=== PATIENT | female | born 1975 | race American Indian/Alaskan Native ===

== ENCOUNTER 2017-09-19 22:20 | Emergency (ER) | payer MEDICAID ==
[2017-09-19] MEDS ORDERED: TYLENOL ONE (23:15)
[2017-09-19] MEDS ORDERED: TYLENOL PO ONE (23:17)
[2017-09-20 03:34] LABS: BUN/Creatinine Ratio 60; Blood Urea Nitrogen 12 mg/dL (7-17); Calcium 9.4 mg/dL (8.4-10.2); Hemolysis Index 3
[2017-09-20 03:36] LABS: Hematocrit 29.8 % (30.3-42.9); Hemoglobin 10.2 gm/dl (10.1-14.3); Mean Corpuscular HGB Conc 34 % (30-34); Mean Corpuscular Hemoglobin 35 pg (28-32); Mean Corpuscular Volume 103 fl (79-97); Platelet Count 230 K/mm3 (140-440); Red Blood Count 2.89 M/mm3 (3.65-5.03); Red Cell Distribution Width 17.8 % (13.2-15.2)
[2017-09-20] MEDS ORDERED: INDERAL PO ONE (04:09)
[2017-09-20] MEDS ORDERED: NORCO 5/325 PO ONE (04:09)
[2017-09-20] MEDS ORDERED: TAPAZOLE PO ONE (04:12)
[2017-09-20] MEDS ORDERED: TORADOL IM ONE (04:13)
[2017-09-20 04:28] LABS: Free T4 (Free Thyroxine) > 7.77 ng/dL (0.76-1.46)
[2017-09-20 05:11] LABS: Total Cells Counted 100
[2017-09-20 05:12] LABS: Anisocytosis 1+; Platelet Estimate Consistent w Auto
[2017-09-20 05:33] VITALS: BP 136/59
--- NOTE | 2017-09-20 05:37 | Emergency Department Report ---
ED ENT HPI - General Chief complaint: Dental/Oral Stated complaint: TOOTH/NECK PAIN Time Seen by Provider: 09/20/17 04:04 Source: patient Mode of arrival: Ambulatory Limitations: No Limitations - History of Present Illness Initial comments: 41-year-old female with a past medical history of anemia, goiter, hypothyroidism , and arthritis presents to the Hospital complaining of toothache 3 days. Patient denies fever, gum swelling, dental trauma, or facial swelling. Pain is rated this as 10/10 intensity, constant, worse with palpation.. Patient presents tachycardic and states she just moved here from [place] and ran out of her her hyperthyroid medication times one week. She cannot recall the names of her medications and thinks one of them might be methimazole. Complaining of some soreness to her goiter but no difficulty breathing. She does not have a local machine puller over - Related Data Previous Rx's Medication Instructions Recorded Last Taken Type HYDROcodone/APAP 5-325 [[place] 1 each PO Q6HR PRN #20 tablet 09/20/17 Unknown Rx 5/325] Ibuprofen [Motrin] 800 mg PO Q8HR PRN #30 tablet 09/20/17 Unknown Rx Methimazole [Tapazole] 5 mg PO Q8H #90 tab 09/20/17 Unknown Rx Penicillin Vk [Veetids TAB] 250 mg PO QID 7 Days tablet 09/20/17 Unknown Rx Propranolol HCl 20 mg PO TID #90 tab 09/20/17 Unknown Rx Allergies Allergy/AdvReac Type Severity Reaction Status Date / Time No Known Allergies Allergy Verified 09/19/17 23:17 ED Dental HPI - General Chief complaint: Dental/Oral Stated complaint: TOOTH/NECK PAIN Time Seen by Provider: 09/20/17 04:04 Source: patient Mode of arrival: Ambulatory Limitations: No Limitations - Related Data Previous Rx's Medication Instructions Recorded Last Taken Type HYDROcodone/APAP 5-325 [[place] 1 each PO Q6HR PRN #20 tablet 09/20/17 Unknown Rx 5/325] Ibuprofen [Motrin] 800 mg PO Q8HR PRN #30 tablet 09/20/17 Unknown Rx Methimazole [Tapazole] 5 mg PO Q8H #90 tab 09/20/17 Unknown Rx Penicillin Vk [Veetids TAB] 250 mg PO QID 7 Days tablet 09/20/17 Unknown Rx Propranolol HCl 20 mg PO TID #90 tab 09/20/17 Unknown Rx Allergies Allergy/AdvReac Type Severity Reaction Status Date / Time No Known Allergies Allergy Verified 09/19/17 23:17 ED Review of Systems ROS: Stated complaint: TOOTH/NECK PAIN Other details as noted in HPI Comment: All other systems reviewed and negative ED Past Medical Hx - Past Medical History Previous Medical History?: Yes Hx Arthritis: Yes Additional medical history: hyperthyroid. Groiter. anemia - Surgical History Past Surgical History?: Yes Additional Surgical History: right knee - Social History Smoking Status: Never Smoker Substance Use Type: None - Medications Home Medications: Home Medications Medication Instructions Recorded Confirmed Last Taken Type HYDROcodone/APAP 5-325 [[place] 1 each PO Q6HR PRN #20 tablet 09/20/17 Unknown Rx 5/325] Ibuprofen [Motrin] 800 mg PO Q8HR PRN #30 tablet 09/20/17 Unknown Rx Methimazole [Tapazole] 5 mg PO Q8H #90 tab 09/20/17 Unknown Rx Penicillin Vk [Veetids TAB] 250 mg PO QID 7 Days tablet 09/20/17 Unknown Rx Propranolol HCl 20 mg PO TID #90 tab 09/20/17 Unknown Rx ED Physical Exam - General Limitations: No Limitations - Other Other exam information: General: No limitations, patient is alert in no acute distress Head exam: Atraumatic, normocephalic Eyes exam: Normal appearance, pupils equal reactive to light, extraocular movements intact ENT: Moist mucous membrane, normal oropharynx. Tooth # 29 fractured with tooth decay. No gum ro facial swelling. Neck exam: Positive goiter with tenderness on palpation Respiratory exam: Clear to auscultation bilateral, no wheezes, rales, crackles Cardiovascular: Tachycardic regular rhythm heart sounds Abdomen: Soft, nondistended, and nontender, with normal bowel sounds, no rebound, or guarding Extremity: Full range of motion normal inspection no deformity Back: Normal Inspection, full range of motion, no tenderness Neurologic: Alert, oriented x3, cranial nerves intact, no motor or sensory deficit Psychiatric: normal affect, normal mood Skin: Warm, dry, intact ED Course Vital Signs 09/19/17 09/20/17 09/20/17 23:11 03:00 05:32 Temperature 99.2 F 98.2 F Pulse Rate 112 H 106 H 104 H Respiratory 18 20 Rate Blood Pressure 159/79 Blood Pressure 148/72 136/59 [Right] O2 Sat by Pulse 100 100 Oximetry ED Medical Decision Making - Lab Data Result diagrams: 09/20/17 03:13 09/20/17 03:13 Lab Results 09/20/17 09/20/17 09/20/17 Range/Units 03:13 03:13 03:13 WBC 4.5 (4.5-11.0) K/mm3 RBC 2.89 L (3.65-5.03) M/mm3 Hgb 10.2 (10.1-14.3) gm/dl Hct 29.8 L (30.3-42.9) % MCV 103 H (79-97) fl MCH 35 H (28-32) pg MCHC 34 (30-34) % RDW 17.8 H (13.2-15.2) % Plt Count 230 (140-440) K/mm3 Lymph % (Auto) Slot Machine Key Person Add Manual Diff Complete Total Counted 100 Seg Neutrophils % Slot Machine Key Person Seg Neuts % (Manual) 49.0 (40.0-70.0) % Band Neutrophils % 0 % Lymphocytes % (Manual) 46.0 H (13.4-35.0) % Reactive Lymphs % (Man) 0 % Monocytes % (Manual) 3.0 (0.0-7.3) % Eosinophils % (Manual) 1.0 (0.0-4.3) % Basophils % (Manual) 1.0 (0.0-1.8) % Metamyelocytes % 0 % Myelocytes % 0 % Promyelocytes % 0 % Blast Cells % 0 % Nucleated RBC % Not Reportable Seg Neutrophils # Man 2.2 (1.8-7.7) K/mm3 Band Neutrophils # 0.0 K/mm3 Lymphocytes # (Manual) 2.1 (1.2-5.4) K/mm3 Abs React Lymphs (Man) 0.0 K/mm3 Monocytes # (Manual) 0.1 (0.0-0.8) K/mm3 Eosinophils # (Manual) 0.0 (0.0-0.4) K/mm3 Basophils # (Manual) 0.0 (0.0-0.1) K/mm3 Metamyelocytes # 0.0 K/mm3 Myelocytes # 0.0 K/mm3 Promyelocytes # 0.0 K/mm3 Blast Cells # 0.0 K/mm3 WBC Morphology Not Reportable Hypersegmented Neuts Not Reportable Hyposegmented Neuts Not Reportable Hypogranular Neuts Not Reportable Smudge Cells Not Reportable Toxic Granulation Not Reportable Toxic Vacuolation Not Reportable Dohle Bodies Not Reportable Pelger-Huet Anomaly Not Reportable Juli Rods Not Reportable Platelet Estimate Consistent w auto Clumped Platelets Not Reportable Plt Clumps, EDTA Not Reportable Large Platelets Not Reportable Giant Platelets Not Reportable Platelet Satelliting Not Reportable Plt Morphology Comment Not Reportable RBC Morphology Not Reportable Dimorphic RBCs Not Reportable Polychromasia Not Reportable Hypochromasia Not Reportable Poikilocytosis Not Reportable Anisocytosis 1+ Microcytosis Not Reportable Macrocytosis Not Reportable Spherocytes Not Reportable Pappenheimer Bodies Not Reportable Sickle Cells Not Reportable Target Cells Not Reportable Tear Drop Cells Not Reportable Ovalocytes Not Reportable Helmet Cells Not Reportable [place] Bodies Not Reportable [place] Not Reportable [place] Cells Not Reportable Bite Cells Not Reportable Crenated Cell Not Reportable Elliptocytes Not Reportable Acanthocytes (Spur) Not Reportable Rouleaux Not Reportable Hemoglobin C Crystals Not Reportable Schistocytes Not Reportable Malaria parasites Not Reportable Connor Bodies Not Reportable Hem Pathologist Commnt No Sodium 140 (137-145) mmol/L Potassium 3.6 (3.6-5.0) mmol/L Chloride 104.1 (98-107) mmol/L Carbon Dioxide 26 (22-30) mmol/L Anion Gap 14 mmol/L BUN 12 (7-17) mg/dL Creatinine 0.2 L (0.7-1.2) mg/dL Estimated GFR > 60 ml/min BUN/Creatinine Ratio 60 % Glucose 86 (65-100) mg/dL Calcium 9.4 (8.4-10.2) mg/dL TSH < 0.005 L (0.270-4.200) mlU/mL Free T4 > 7.77 H (0.76-1.46) ng/dL HCG, Qual (Negative) 09/20/17 Range/Units 03:13 WBC (4.5-11.0) K/mm3 RBC (3.65-5.03) M/mm3 Hgb (10.1-14.3) gm/dl Hct (30.3-42.9) % MCV (79-97) fl MCH (28-32) pg MCHC (30-34) % RDW (13.2-15.2) % Plt Count (140-440) K/mm3 Lymph % (Auto) Add Manual Diff Total Counted Seg Neutrophils % Seg Neuts % (Manual) (40.0-70.0) % Band Neutrophils % % Lymphocytes % (Manual) (13.4-35.0) % Reactive Lymphs % (Man) % Monocytes % (Manual) (0.0-7.3) % Eosinophils % (Manual) (0.0-4.3) % Basophils % (Manual) (0.0-1.8) % Metamyelocytes % % Myelocytes % % Promyelocytes % % Blast Cells % % Nucleated RBC % Seg Neutrophils # Man (1.8-7.7) K/mm3 Band Neutrophils # K/mm3 Lymphocytes # (Manual) (1.2-5.4) K/mm3 Abs React Lymphs (Man) K/mm3 Monocytes # (Manual) (0.0-0.8) K/mm3 Eosinophils # (Manual) (0.0-0.4) K/mm3 Basophils # (Manual) (0.0-0.1) K/mm3 Metamyelocytes # K/mm3 Myelocytes # K/mm3 Promyelocytes # K/mm3 Blast Cells # K/mm3 WBC Morphology Hypersegmented Neuts Hyposegmented Neuts Hypogranular Neuts Smudge Cells Toxic Granulation Toxic Vacuolation Dohle Bodies Pelger-Huet Anomaly Juli Rods Platelet Estimate Clumped Platelets Plt Clumps, EDTA Large Platelets Giant Platelets Platelet Satelliting Plt Morphology Comment RBC Morphology Dimorphic RBCs Polychromasia Hypochromasia Poikilocytosis Anisocytosis Microcytosis Macrocytosis Spherocytes Pappenheimer Bodies Sickle Cells Target Cells Tear Drop Cells Ovalocytes Helmet Cells [place] Bodies [place] Cells Bite Cells Crenated Cell Elliptocytes Acanthocytes (Spur) Rouleaux Hemoglobin C Crystals Schistocytes Malaria parasites Connor Bodies Hem Pathologist Commnt Sodium (137-145) mmol/L Potassium (3.6-5.0) mmol/L Chloride (98-107) mmol/L Carbon Dioxide (22-30) mmol/L Anion Gap mmol/L BUN (7-17) mg/dL Creatinine (0.7-1.2) mg/dL Estimated GFR ml/min BUN/Creatinine Ratio % Glucose (65-100) mg/dL Calcium (8.4-10.2) mg/dL TSH (0.270-4.200) mlU/mL Free T4 (0.76-1.46) ng/dL HCG, Qual Negative (Negative) - Medical Decision Making Orthostatic vital signs are negative. I suspect that tachycardia is secondary to noncompliance with her presumed beta yordan and other thyroid treatment. Patient given a dose of propranolol and methimazole in the ED with improvement in heart rate. After [place], Tylenol, and Toradol patient had some relief in her dental pain. She be discharged from a pain medication, thyroid medication, propanolol, and antibiotic and follow-up with primary care doctor, buyer broker, and dentist encouraged Patient has mild tachycardia upon repeat vital signs 1.5 hours after medication with HR102. Peak med onset is within 1-4 hours. Pt patient has hyperthyroidism without signs of thyroid storm. She does not recall the name of her meds but states tahat one was 5 mg dose 3 times a day any other medication was 10 mg dose 3 times a day as well. Patient will be started on methimazole 5 mg 3 times a day with first dose in the ED. She also will be started on propanolol at 20 mg 3 times a day. Stressed importance of follow-up for further titration of medications. - Differential Diagnosis hyperthyroidism, thyroid storm, dental caries, dental abscess, dehydration Critical Care Time: No Critical care attestation.: If time is entered above; I have spent that time in minutes in the direct care of this critically ill patient, excluding procedure time. ED Disposition Clinical Impression: Hyperthyroidism, Noncompliance with medication regimen, Pain due to dental caries, Goiter Disposition: TO HOME OR SELFCARE Is pt being admited?: No Does the pt Need Aspirin: No Condition: Stable Instructions: Hyperthyroidism (ED), Dental Caries (ED) Additional Instructions: It is very important that you take the medication as prescribed and follow with a primary care doctor, buyer broker, and a dentist for further treatment. Return if symptoms worsen as indicated by a discharge instructions. Prescriptions: HYDROcodone/APAP 5-325 [[place] 5/325] 1 each PO Q6HR PRN #20 tablet PRN Reason: Pain , Severe (7-10) Ibuprofen [Motrin] 800 mg PO Q8HR PRN #30 tablet PRN Reason: Pain, Moderate (4-6) Methimazole [Tapazole] 5 mg PO Q8H #90 tab Penicillin Vk [Veetids TAB] 250 mg PO QID 7 Days tablet Propranolol HCl 20 mg PO TID #90 tab Referrals: KIRSTEN KIM [Other] - 3-5 Days CON NAJERA MD [Staff Physician] - 3-5 Days Olena HAY MD [Referring] - 3-5 Days LUIS FELIPE CORONADO MD [Referring] - 3-5 Days THUY ASTORGA MD [Staff Physician] - 3-5 Days Time of Disposition: 05:56
== END 2017-09-20 07:26 | disposition home or self-care (01) ==
LOC: ED 22:20
DX: E05.90 Thyrotoxicosis, unspecified without thyrotoxic crisis or storm (principal); K02.9 Dental caries, unspecified; E04.9 Nontoxic goiter, unspecified; Z91.14 Patient's other noncompliance with medication regimen; M19.90 Unspecified osteoarthritis, unspecified site; D64.9 Anemia, unspecified
CPT/HCPCS: 36415; 80048; 84439; 84443; 84703; 85007; 85025; 96372; 99283; J1885